=== PATIENT | male | born 1980 | race Two or more races ===

== ENCOUNTER 2022-05-06 10:09 | Inpatient (IN) ==
[2022-05-06] MEDS ORDERED: LORazepam 2 mg VIAL 1 ml ONE (10:31)
[2022-05-06] MEDS ORDERED: Lorazepam PYXIS KEY PRN (10:32)
[2022-05-06] MEDS ORDERED: Haloperidol 5 mg/ml SDV IV/IM 5 MG/ML AMP IM ONE (10:32)
[2022-05-06] MEDS ORDERED: LORazepam 2 mg VIAL 1 ml IM ONE (10:32)
[2022-05-06 12:59] LABS: ABS Monocytes 0.5 10^3/ul (0-0.8); ABS Neutrophils 9.4 10^3/ul (1.5-7.7); Hematocrit 40 % (42-52); Hemoglobin 13.4 g/dL (14.0-18.0); Lymphocyte % 8.9 %; Mean Corpuscular HGB Conc 33 g/dL (31-36); Mean Corpuscular Hemoglobin 27 pg (27-31); Mean Corpuscular Volume 80 fL (80-94); Mean Platelet Volume 9.3 fL (7.4-10.4); Platelet Count 165 10^3/uL (150-450); Red Cell Distribution Width 14 % (10-15); White Blood Count 10.9 10^3/uL (3.5-10.8)
[2022-05-06 15:00] LABS: ALT 10 U/L (7-52); AST 17 U/L (13-39); Acetaminophen < 15 mcg/mL; Albumin 4.4 g/dL (3.2-5.2); Albumin/Globulin Ratio 1.6 (1-3); Alcohol, S < 13 mg/dL (<13); Alkaline Phosphatase 53 U/L (35-149); Anion Gap 7 mmol/L (2-11); Blood Urea Nitrogen 16 mg/dL (6-24); CO2 Carbon Dioxide 30 mmol/L (22-32); Calcium 9.6 mg/dL (8.6-10.3); Chloride 107 mmol/L (101-111); Globulin 2.8 g/dL (2-4); Glucose 74 mg/dL (70-100); Potassium 3.7 mmol/L (3.5-5.0); Salicylate < 2.50 mg/dL (<30); Sodium 144 mmol/L (135-145); Total Protein 7.2 g/dL (6.4-8.9); eGFR CKD-EPI 58.3 (>60)
[2022-05-06 15:04] LABS: TSH Ultra Thyroid Stim Horm 2.04 mcIU/mL (0.34-5.60)
[2022-05-06 18:43] LABS: Urine Appearance Cloudy; Urine Bilirubin Negative (Negative); Urine Blood Negative (Negative); Urine Color Yellow; Urine Glucose Negative (Negative); Urine Ketones Trace (Negative); Urine Nitrite Negative (Negative); Urine Protein 1+(30 mg/dL) (Negative); Urine Specific Gravity 1.019 (1.002-1.030); Urine Urobilinogen Negative (Negative)
[2022-05-06 18:48] LABS: Urine Benzodiazepine Screen None Detected (None Detect); Urine Cannabinoids Screen None Detected (None Detect); Urine Opiates Screen None Detected (None Detect)
[2022-05-06 18:49] LABS: Urine Bacteria Absent (Absent); Urine Red Blood Cell Absent (Absent); Urine Sperm Present (Absent); Urine White Blood Cell Absent (Absent)
[2022-05-06] MEDS ORDERED: Al Hydrox/Mg Hydrox/Simet LIQ 30 ML UDC PO PRN (22:11)
[2022-05-07 07:59] LABS: HDL Cholesterol 56.1 mg/dL
[2022-05-07] MEDS: Vitamin THERAPEUTIC TAB PO SCH (12:05)
[2022-05-07] MEDS ORDERED: OLANZapine 5 mg TAB *ODT PO PRN (12:52)
[2022-05-08] MEDS: Vitamin THERAPEUTIC TAB PO SCH ×2 (09:12→11:04)
[2022-05-08 18:48] LABS: Albumin 4.8 g/dL (3.2-5.2); Calcium 10.2 mg/dL (8.6-10.3); Potassium 3.4 mmol/L (3.5-5.0); Total Bilirubin 1.2 mg/dL (0.2-1.0)
[2022-05-08 18:54] LABS: Albumin/Globulin Ratio 1.6 (1-3); Total Protein 7.8 g/dL (6.4-8.9); eGFR CKD-EPI 66.6 (>60)
[2022-05-09] MEDS ORDERED: OLANZapine IM (NF) 10 MG VIAL IM ONE ×2 (04:35→04:39)
[2022-05-09] MEDS: Vitamin THERAPEUTIC TAB PO SCH (09:34)
[2022-05-09 09:42] LABS: Calcium 9.9 mg/dL (8.6-10.3); Potassium 3.3 mmol/L (3.5-5.0); eGFR CKD-EPI 84.1 (>60)
[2022-05-10] MEDS ORDERED: Haloperidol 5 mg/ml SDV IV/IM 5 MG/ML AMP ONE (07:34)
[2022-05-10] MEDS ORDERED: LORazepam 2 mg VIAL 1 ml ONE (07:34)
[2022-05-10] MEDS ORDERED: Lorazepam PYXIS KEY ONE (07:36)
[2022-05-10] MEDS ORDERED: Haloperidol 5 mg/ml SDV IV/IM 5 MG/ML AMP IM ONE (07:44)
[2022-05-10] MEDS ORDERED: LORazepam 2 mg VIAL 1 ml IM ONE (07:44)
[2022-05-10] MEDS: Vitamin THERAPEUTIC TAB PO SCH (14:01)
[2022-05-11] MEDS: Vitamin THERAPEUTIC TAB PO SCH (10:12)
[2022-05-12 07:11] LABS: ABS Basophils 0.1 10^3/ul (0-0.2); ABS Eosinophils 0.1 10^3/ul (0-0.6); ABS Monocytes 0.3 10^3/ul (0-0.8); ABS Neutrophils 4.1 10^3/ul (1.5-7.7); Eosinophil % 1.5 %; Hematocrit 38 % (42-52); Hemoglobin 12.6 g/dL (14.0-18.0); Lymphocyte % 18.1 %; Mean Corpuscular HGB Conc 33 g/dL (31-36); Mean Corpuscular Hemoglobin 27 pg (27-31); Mean Corpuscular Volume 82 fL (80-94); Mean Platelet Volume 9.4 fL (7.4-10.4); Platelet Count 136 10^3/uL (150-450); Red Blood Count 4.61 10^6 /uL (4.18-5.48); Red Cell Distribution Width 14 % (10-15); White Blood Count 5.6 10^3/uL (3.5-10.8)
[2022-05-12 08:16] LABS: Calcium 9.3 mg/dL (8.6-10.3); Potassium 3.5 mmol/L (3.5-5.0); eGFR CKD-EPI 89.9 (>60)
[2022-05-12] MEDS: Vitamin THERAPEUTIC TAB PO SCH (08:19)
[2022-05-13] MEDS: Vitamin THERAPEUTIC TAB PO SCH (08:21)
[2022-05-14] MEDS: Vitamin THERAPEUTIC TAB PO SCH (08:25)
[2022-05-15] MEDS: Vitamin THERAPEUTIC TAB PO SCH (07:19)
[2022-05-15 08:36] LABS: Calcium 9.2 mg/dL (8.6-10.3); Potassium 3.7 mmol/L (3.5-5.0)
[2022-05-16] MEDS: Vitamin THERAPEUTIC TAB PO SCH (08:25)
[2022-05-16 08:35] VITALS: BP 166/96
== END 2022-05-16 12:00 | DRG 885 ==
LOC: ED 10:09 → BSU 22:23
PROVIDERS: ADMIT Psychiatry & Neurology Psychiatry; ATTEND Student in an Organized Health Care Education/Training Program

== ENCOUNTER 2024-08-18 17:36 | Inpatient (IN) ==
[2024-08-18 18:52] LABS: ABS Lymphocytes 1.4 10^3/uL (1.0-4.8); ABS Monocytes 0.3 10^3/uL (0.0-1.1); ABS Neutrophils 4.4 10^3/uL (1.5-7.6); ABS Nucleated RBC 0.01 10^3/ul; Eosinophil % 0.4 %; Hematocrit 40.5 % (38-53); Hemoglobin 13.8 g/dL (13.2-16.3); Lymphocyte % 23.1 %; Mean Corpuscular Hemoglobin 27.5 pg (27-33); Mean Corpuscular Hgb Conc 34.1 g/dL (31-36); Mean Corpuscular Volume 80.6 fL (80-97); Mean Platelet Volume 9.2 fL (7.5-11.2); Nucleated Red Blood Cells % 0.1 %/100WBC (0.0-0.8); Platelet Count 158 10^3/uL (150-450); Red Blood Count 5.02 10^6/uL (4.06-5.63); Red Cell Distribution Width 13.2 % (12-17); White Blood Count 6.2 10^3/uL (3.6-10.2)
[2024-08-18 19:02] LABS: Urine Appearance Clear; Urine Bilirubin Negative (Negative); Urine Blood Negative (Negative); Urine Color Yellow; Urine Glucose Negative (Negative); Urine Ketones Trace (Negative); Urine Nitrite Negative (Negative); Urine Protein 1+ (>=30 mg/dL) (Negative); Urine Specific Gravity 1.031 (1.002-1.030); Urine Urobilinogen 1+ (Negative)
[2024-08-18 19:12] LABS: Urine Benzodiazepine Screen None Detected (None Detect); Urine Cannabinoids Screen None Detected (None Detect); Urine Opiates Screen None Detected (None Detect)
[2024-08-18 19:22] LABS: Urine Bacteria Absent /HPF (Absent); Urine Red Blood Cell Trace(0-2/hpf) /HPF (0-Trace); Urine Sperm Present /HPF (Absent); Urine Squamous Epithelial Cell Present /HPF (Absent); Urine White Blood Cell Trace(0-5/hpf) /HPF (0-Trace)
[2024-08-18 19:36] LABS: TSH Ultra Thyroid Stim Horm 1.71 mcIU/mL (0.34-5.60)
[2024-08-18 20:21] LABS: ALT 12 U/L (7-52); AST 14 U/L (13-39); Acetaminophen < 15 mcg/mL; Albumin 4.8 g/dL (3.2-5.2); Albumin/Globulin Ratio 1.6 (1-3); Alcohol, S < 13 mg/dL (<13); Alkaline Phosphatase 51 U/L (35-149); Anion Gap 10 mmol/L (2-16); Blood Urea Nitrogen 20 mg/dL (6-24); CO2 Carbon Dioxide 30 mmol/L (22-32); Chloride 101 mmol/L (101-111); Creatinine, Serum 1.06 mg/dL (0.67-1.17); Glucose 103 mg/dL (70-100); Potassium 3.6 mmol/L (3.5-5.0); Salicylate < 2.50 mg/dL (<30); Sodium 141 mmol/L (135-145); Total Bilirubin 0.9 mg/dL (0.2-1.0); Total Protein 7.8 g/dL (6.4-8.9); eGFR CKD-EPI 88.2 (>60)
[2024-08-19] MEDS: Ondansetron 4 mg VIAL 2 MG/ML 2 ml VIAL IV ONE (01:20)
[2024-08-19] MEDS ORDERED: Al Hydrox/Mg Hydrox/Simet LIQ 30 ML UDC PO PRN (13:31)
[2024-08-21 08:01] LABS: HDL Cholesterol 47.6 mg/dL
[2024-08-23 10:11] VITALS: BP 138/93
== END 2024-08-23 13:30 | disposition home or self-care (01) | DRG 885 ==
LOC: ED 17:36 → EDHOLD 08-19 13:31 → BSU 08-19 13:44
PROVIDERS: ADMIT Psychiatry & Neurology Psychiatry; ATTEND Psychiatry & Neurology Psychiatry

== ENCOUNTER 2024-11-02 10:28 | Inpatient (IN) ==
[2024-11-02 15:49] LABS: ABS Lymphocytes 1.3 10^3/uL (1.0-4.8); ABS Monocytes 0.5 10^3/uL (0.0-1.1); ABS Neutrophils 6.4 10^3/uL (1.5-7.6); ABS Nucleated RBC 0.01 10^3/ul; Hematocrit 43.7 % (38-53); Hemoglobin 14.9 g/dL (13.2-16.3); Mean Corpuscular Hemoglobin 27.3 pg (27-33); Mean Corpuscular Volume 80.2 fL (80-97); Mean Platelet Volume 9.9 fL (7.5-11.2); Nucleated Red Blood Cells % 0.1 %/100WBC (0.0-0.8); Platelet Count 189 10^3/uL (150-450); Red Blood Count 5.45 10^6/uL (4.06-5.63); Red Cell Distribution Width 13.1 % (12-17); White Blood Count 8.3 10^3/uL (3.6-10.2)
[2024-11-02 16:20] LABS: Albumin 4.9 g/dL (3.5-5.7); Albumin/Globulin Ratio 1.5 (1-3); Calcium 10.2 mg/dL (8.6-10.3); Creatinine, Serum 1.13 mg/dL (0.67-1.17); Globulin 3.3 g/dL (2-4); Potassium 3.3 mmol/L (3.5-5.0); Total Bilirubin 0.7 mg/dL (0.2-1.0); Total Protein 8.2 g/dL (6.4-8.9); eGFR CKD-EPI 81.7 (>60)
[2024-11-02] MEDS ORDERED: Al Hydrox/Mg Hydrox/Simet LIQ 30 ML UDC PO PRN (16:22)
[2024-11-02 16:35] LABS: Urine Benzodiazepine Screen None Detected (None Detect); Urine Cannabinoids Screen None Detected (None Detect); Urine Opiates Screen None Detected (None Detect)
[2024-11-02 16:35] LABS: TSH Ultra Thyroid Stim Horm 1.87 mcIU/mL (0.34-5.60)
[2024-11-03] MEDS: Vitamin THERAPEUTIC TAB PO SCH (08:21)
[2024-11-03] MEDS: OLANZapine 10 mg TAB*ODT PO SCH (20:54)
[2024-11-04 09:33] LABS: HDL Cholesterol 54.4 mg/dL
[2024-11-05] MEDS: Fluoxetine LIQ 20 MG/5 ML UDC PO SCH (09:40)
[2024-11-10 09:20] VITALS: BP 149/88
== END 2024-11-10 12:30 | disposition home or self-care (01) | DRG 885 ==
LOC: ED 10:28 → BSU 14:24
PROVIDERS: ADMIT Psychiatry & Neurology Psychiatry; ATTEND Psychiatry & Neurology Psychiatry